=== PATIENT | male | born 1980 | race Caucasian/White ===

== ENCOUNTER 2017-05-02 18:13 | Emergency (ER) | payer SELFPAY ==
[~2017-05-02] VITALS: Ht 175.3 cm; Wt 88.9 kg
[2017-05-02 18:53] LABS: HEMATOCRIT 50.4 % (39.2-51.8); HEMOGLOBIN 17.6 g/dL (13.7-18.0); WHITE BLOOD COUNT 8.5 x10^3/uL (3.4-10)
[2017-05-02] MEDS ORDERED: MAALOX/HYOSCYAMINE/LIDOCAINE 45 ML BTL ONE (18:58)
[2017-05-02] MEDS ORDERED: MAALOX/HYOSCYAMINE/LIDOCAINE 45 ML BTL PO ONE (19:00)
[2017-05-02 19:04] LABS: BLOOD UREA NITROGEN 10 mg/dL (7-18)
[2017-05-02 19:07] LABS: ASPARTATE AMINO TRANSFERASE 36 U/L (15-37)
[2017-05-02 20:14] VITALS: BP 143/98
== END 2017-05-02 20:20 | disposition home or self-care (01) ==
LOC: ED 19:45
DX: R10.11 Right upper quadrant pain (principal); R11.2 Nausea with vomiting, unspecified
CPT/HCPCS: 36415; 76700; 80053; 81001; 83690; 85025; 99285

== ENCOUNTER 2018-11-08 12:58 | Emergency (ER) | payer SELFPAY ==
[~2018-11-08] VITALS: Ht 175.3 cm; Wt 83.8 kg
[2018-11-08 13:10] VITALS: BP 134/98
[2018-11-08] MEDS ORDERED: FLUORESCEIN OPHTHALMIC 1 MG STRIP ONE (13:26)
[2018-11-08] MEDS ORDERED: PROPARACAINE OPHTH 0.5%, 15ML ONE (13:27)
[2018-11-08] MEDS ORDERED: PROPARACAINE OPHTH 0.5%, 15ML EACHEYE ONE (13:30)
[2018-11-08] MEDS ORDERED: FLUORESCEIN OPHTHALMIC 1 MG STRIP EACHEYE ONE (13:30)
--- NOTE | 2018-11-08 13:53 | NUR ---
Patient/Caregiver given discharge instructions and they have confirmed that they understand the instructions. Patient ambulatory with steady gait.
== END 2018-11-08 14:15 | disposition home or self-care (01) ==
LOC: ED 14:04
DX: S05.01XA Injury of conjunctiva and corneal abrasion without foreign body, right eye, initial encounter (principal); X58.XXXA Exposure to other specified factors, initial encounter; Y93.89 Activity, other specified; Y92.89 Other specified places as the place of occurrence of the external cause; Y99.8 Other external cause status
CPT/HCPCS: 99283

== ENCOUNTER 2018-12-22 11:55 | Emergency (ER) | payer OTHER ==
[~2018-12-22] VITALS: Ht 175.3 cm; Wt 88.0 kg
[2018-12-22 11:58] VITALS: BP 126/87
== END 2018-12-22 12:26 | disposition home or self-care (01) ==
LOC: ED 12:18
DX: K08.89 Other specified disorders of teeth and supporting structures (principal); F17.200 Nicotine dependence, unspecified, uncomplicated
CPT/HCPCS: 99283